=== PATIENT | male | born 1965 | race African-American/Black ===

== ENCOUNTER 2020-07-17 10:34 | Outpatient (CLI) | payer BC ==
--- NOTE | 2020-07-17 11:58 | MRI ---
MR OF THE LEFT KNEE WITHOUT CONTRAST INDICATION: Left knee pain concern for meniscal tear TECHNIQUE: Axial and coronal PD fat sat, sagittal T2 fat sat, sagittal PD turbo spin echo and T1 zachary nal images were obtained of the left knee. COMPARISON: Left knee radiograph dated July 02, 2020 FINDINGS: Joint effusion: There is a small joint effusion Semimembranosus-medial gastrocnemius popliteal cyst: Moderate sized cysts Ligaments: The ACL, PCL, MCL and LCLC are intact. Extensor mechanism: There is mild proximal patellar tendinosis. Quadriceps mechanism is intact. Menisci: There is a horizontally oriented tear involving the anterior junction, body and posterior ho rn of the medial meniscus. Lateral meniscus appears intact. Articular cartilage: There is a long segment full-thickness delaminating articular cartilage tear davis suring 1.9 cm involving the medial patellar facet. There is a 1.8 mm near full-thickness articular cartilage fissure involving median patellar ridge. There is diffuse moderate to severe chondral thinn ing involving the femoral tibial compartments, medial greater than lateral. There are moderate marginal osteophytes affecting the femoral tibial and patellofemoral compartments. Osseous structures: There is a 1.5 a 1.7 cm sessile type osteochondroma projecting off the posterior medial aspect of the proximal tibial metaphysis. No acute fracture is evident. Popliteus and IT band: Normal. IMPRESSION: 1. Medial meniscal tear. 2. Mild left knee osteoarthrosis. 3. Mild proximal patellar tendinosis. 4. Small osteochondroma of the proximal tibia.
== END 2020-07-17 10:35 | disposition home or self-care (01) ==
LOC: TBSIIMAG 10:34
PROVIDERS: ATTEND Orthopaedic Surgery
DX: S83.282A Other tear of lateral meniscus, current injury, left knee, initial encounter (principal); M23.92 Unspecified internal derangement of left knee; M25.562 Pain in left knee; M17.12 Unilateral primary osteoarthritis, left knee; S83.242A Other tear of medial meniscus, current injury, left knee, initial encounter; M76.9 Unspecified enthesopathy, lower limb, excluding foot; D16.22 Benign neoplasm of long bones of left lower limb

== ENCOUNTER 2020-08-20 07:03 | Outpatient (CLI) | payer BC ==
[2020-08-20 17:02] LABS: Anion Gap 16 mmol/L (10-20); BUN (Urea Nitrogen) 14 mg/dL (8.4-25.7); Calc. Creatinine Clearance 0 mL/min (70-130); Calcium 9.7 mg/dL (7.8-10.44); Carbon Dioxide 24 mmol/L (22-29); Chloride 104 mmol/L (98-107); Glucose 175 mg/dL (70-105); Potassium 4.6 mmol/L (3.5-5.1); Sodium 139 mmol/L (136-145)
[2020-08-20 17:08] LABS: #Monocytes 0.1 10x3/uL (0.0-1.1); #Neutrophils 4.2 10x3/uL (1.5-8.4); %Basophils 0.4 % (0.0-2.0); %Eosinophils 0.5 % (0.0-6.0); %Lymphocytes 21.5 % (18.0-47.0); %Monocytes 1.4 % (0.0-10.0); Hemoglobin 15.5 g/dL (14.0-18.0); Mean Corpuscular HGB CONC 31.9 G/DL (32.0-36.0); Mean Corpuscular Hemoglobin 26.1 PG (27.0-33.0); Mean Corpuscular Volume 81.8 fl (80.0-100.0); Mean Platelet Volume 11.1 fl (7.4-10.4); Platelet Count 270 10x3/uL (130-400); RBC Distribution Width 13.7 % (11.5-14.5); Red Blood Cell (RBC) Count 5.94 10x6/uL (4.40-5.80); White Blood Cell (WBC) Count 5.6 10x3/uL (4.5-11.0)
[2020-08-22 08:41] LABS: SARS-CoV-2 PCR by NAA Not Detected (NotDetected)
--- NOTE | 2020-08-22 09:14 | EKG ---
Test Reason : Blood Pressure : / mmHG Vent. Rate : 080 BPM Atrial Rate : 080 BPM P-R Int : 188 ms QRS Dur : 082 ms QT Int : 340 ms P-R-T Axes : 072 078 -36 degrees QTc Int : 392 ms Normal sinus rhythm Nonspecific T wave abnormality Abnormal ECG No previous ECGs available Confirmed by JB CESPEDES ([id number]) on 08/22/2020 9:13:40 AM Referred By: MITCHRO Confirmed By:JB CESPEDES
== END 2020-08-20 07:04 | disposition home or self-care (01) ==
LOC: LABBT 07:03
PROVIDERS: ATTEND Orthopaedic Surgery
DX: Z01.818 Encounter for other preprocedural examination (principal); Z20.822 Contact with and (suspected) exposure to COVID-19; S83.207A Unspecified tear of unspecified meniscus, current injury, left knee, initial encounter
CPT/HCPCS: 80048; 85025; 87635; 93005; 93010; U0003; U0005

== ENCOUNTER 2020-08-23 08:12 | Day surgery (SDC) | payer BC ==
[2020-08-21 12:28] VITALS: BMI 42.0
[2020-08-23] MEDS ORDERED: PROPOFOL 20 ML ONE (09:33)
[2020-08-23] MEDS ORDERED: Fentanyl 100 MCG/2 ML VIAL ONE ×3 (09:34→11:20)
[2020-08-23] MEDS ORDERED: Ondansetron PF 4 MG/2 ML Vial ONE (10:03)
[2020-08-23] MEDS ORDERED: PROPOFOL 200 MG/20 ML VIAL ONE (10:03)
[2020-08-23] MEDS ORDERED: Lidocaine 1% PF 5 ML VIAL ONE (10:03)
[2020-08-23] MEDS ORDERED: Ketorolac Tromethamine 30 MG/ML VIAL ONE (10:03)
[2020-08-23] MEDS ORDERED: Dexamethasone 20 MG/5 ML VIAL ONE (10:03)
[2020-08-23] MEDS ORDERED: Bupivacaine HCl 0.5%/Epinephrine 1:200,000/PF 30 ml Vial ONE (10:05)
[2020-08-23] MEDS ORDERED: Lidocaine 2% w/Epinephrine 1:200K 20 ML VIAL ONE (10:05)
[2020-08-23] MEDS ORDERED: HYDROcodone/Acetaminophen 5/325 mg Tablet ONE (12:36)
--- NOTE | 2020-08-25 10:32 | OP ---
DATE OF PROCEDURE: 08/23/2020 PREOPERATIVE DIAGNOSES: 1. Left knee medial meniscus tear. 2. Chondromalacia, left knee. POSTOPERATIVE DIAGNOSES: 1. Degenerative tear, posterior horn of medial meniscus. 2. Grade 3 and 4 changes to include the medial femoral condyle, lateral femoral condyle, trochlea, and patella. PROCEDURES PERFORMED: 1. Left knee arthroscopy with partial medial meniscectomy. 2. Debridement and shaving of all unstable chondral flaps to include medial femoral condyle, lateral femoral condyle, trochlea, and patella. CUT OFF SAWYER: None. ESTIMATED BLOOD LOSS: Minimal. COMPLICATIONS: None. ANESTHESIA: The patient had a general anesthetic as well as a preoperative local knee block. INDICATIONS: This is a 55-year-old male, who has been having problems with his knee, has consistent, locking, catching and swelling. At this time, he opted to have surgery. DESCRIPTION OF PROCEDURE: After all appropriate consent forms were explained and signed, he was taken to the operating room and at this time was given general anesthetic. Once the level of anesthesia was appropriate, tourniquet was placed on the left thigh. Leg was placed in arthroscopic leg goncalves. The limb was then prepped and draped in standard surgical fashion. The limb was exsanguinated, tourniquet was taken to 300 mmHg. The lateral portal was established, scope was placed into the knee joint. A needle localization technique was then used to make a medial working portal. Diagnostic arthroscopy commenced in the notch. The ACL and PCL were probed, found to be intact. The patient did have osteophytes off the tibia and the femur, but they were not found to be impinging and creating lack of extension and therefore they were left alone. The medial compartment showed medial femoral condyle to have significant area of grade 3 and 4 wear. Surrounding this was good cartilage. The tibial plateau did have some grade 2 changes and there was a tear in the posterior horn of the medial meniscus. Partial meniscectomy was performed using meniscal biter and shaver back to a stable base. Loose chondral flaps were noted on the medial femoral condyle, but these were minimal. The lateral compartment was then evaluated. There was some fraying in the body of the meniscus. This was taken down gently with a shaver. There were some areas of grade 3 cartilage loss in the lateral tibial plateau, but the majority of the plateau was in good condition. Laterally, there was a large unstable chondral flap on the femur and this was taken down with a shaver back to a stable base. Gutters were swept through, no loose bodies were noted, but peripheral osteophytes were noted. Patellofemoral joint, found the patient to have an unstable chondral flap on the trochlea as well as the patella and again these were both taken down to a stable base with a shaver. Both of these areas had grade 3 and 4 changes. At this time, the scope was removed from the knee. The knee was drained and each portal was closed with a simple nylon stitch. Bulky sterile dressing was applied. Tourniquet was let down. Toes pinked up nicely. The patient was awakened and was taken to the recovery room in stable condition. All counts were correct at the end of the case and he did receive preoperative IV antibiotics. Job ID: [id number] [facility]
== END 2020-08-23 13:45 | disposition home or self-care (01) ==
LOC: SDC 08:12
PROVIDERS: ATTEND Orthopaedic Surgery
PROC: 0SBD4ZZ Excision of Left Knee Joint, Percutaneous Endoscopic Approach (ICD-10-PCS; principal; 2020-08-23)
DX: M23.322 Other meniscus derangements, posterior horn of medial meniscus, left knee (principal); M94.262 Chondromalacia, left knee; M17.12 Unilateral primary osteoarthritis, left knee; E66.9 Obesity, unspecified; Z68.41 Body mass index [BMI] 40.0-44.9, adult
CPT/HCPCS: J0690; J1100; J1885; J2405; J2704; J3010

== ENCOUNTER 2022-04-10 09:47 | Outpatient (CLI) | payer BC | END 2022-04-10 09:48 | disposition home or self-care (01) | LOC: LABBT 09:47 | PROVIDERS: ATTEND Orthopaedic Surgery | DX: Z01.818 Encounter for other preprocedural examination (principal); M17.12 Unilateral primary osteoarthritis, left knee | CPT/HCPCS: 71046; 87081; 93005; 93010 ==

== ENCOUNTER 2022-04-15 05:30 | Observation (INO) | payer BC ==
[2022-04-10 11:10] LABS: Bilirubin Neg (Negative); Blood, Urine Negative (Negative); Clarity Clear (Clear); Glucose, Urine (Dipstick) Normal (Negative); Ketone, Urine Negative (Negative); Leukocyte Negative (Negative); Nitrite Negative (Negative); Protein, Urine (Dipstick) Negative (Neg-Trace); Urobilinogen Normal mg/dL (Less than 2)
[2022-04-10 11:26] LABS: #Eosinphils 0.3 10x3/uL (0.0-0.5); #Monocytes 0.5 10x3/uL (0.0-1.1); #Neutrophils 2.5 10x3/uL (1.5-8.4); %Basophils 0.6 % (0.0-2.0); %Eosinophils 5.4 % (0.0-6.0); %Lymphocytes 39.1 % (18.0-47.0); %Monocytes 9.4 % (0.0-10.0); %Neutrophils 45.3 % (40.0-75.0); Hemoglobin 14.9 g/dL (13.5-17.5); Mean Corpuscular HGB CONC 32.5 g/dL (32.0-36.0); Mean Corpuscular Hemoglobin 26.4 pg (27.0-33.0); Mean Corpuscular Volume 81.2 fl (81.2-95.1); Mean Platelet Volume 11.6 fl (7.4-10.4); Platelet Count 244 10x3/uL (150-450); RBC Distribution Width 13.5 % (11.5-14.5); Red Blood Cell (RBC) Count 5.65 10x6/uL (4.32-5.72); White Blood Cell (WBC) Count 5.4 10x3/uL (3.5-10.5)
[2022-04-10 11:34] LABS: INR-International Normal Ratio 0.9; Prothrombin Time 10.3 sec (9.5-12.1)
[2022-04-10 11:53] LABS: Anion Gap 13 mmol/L (10-20); BUN (Urea Nitrogen) 9 mg/dL (8.4-25.7); Calc. Creatinine Clearance 0 mL/min (70-130); Calcium 9.5 mg/dL (7.8-10.44); Carbon Dioxide 27 mmol/L (22-29); Chloride 106 mmol/L (98-107); Estimated GFR 82; Glucose 114 mg/dL (70-105); Potassium 4.6 mmol/L (3.5-5.1); Sodium 141 mmol/L (136-145)
[2022-04-13 15:17] VITALS: BMI 40.6
[2022-04-15] MEDS ORDERED: Tranexamic Acid 1,000 MG/10 ML VIAL ONE ×2 (06:05→09:52)
[2022-04-15] MEDS ORDERED: Sodium Chloride 0.9% 100 ML ONE ×3 (06:05→11:15)
[2022-04-15] MEDS ORDERED: VANCOMYCIN 2 GRAM/500 ML BAG 2 GM in Premix Bag 1 BAG IVPB SCH ×2 (06:15→20:00)
[2022-04-15] MEDS ORDERED: fentaNYL PF 100 MCG/2 ML SYRINGE ONE (06:19)
[2022-04-15] MEDS ORDERED: Bupivacaine PF 0.5% 30 ML VIAL ONE (06:25)
[2022-04-15] MEDS ORDERED: Midazolam HCl 2 mg/2 ml Vial ONE (06:45)
[2022-04-15] MEDS ORDERED: CEFAZOLIN 2 GM VIAL ONE (07:02)
[2022-04-15] MEDS ORDERED: Ondansetron PF 4 MG/2 ML Vial ONE (07:03)
[2022-04-15] MEDS ORDERED: PROPOFOL 200 MG/20 ML VIAL ONE (07:03)
[2022-04-15] MEDS ORDERED: Dexamethasone 20 MG/5 ML VIAL ONE (07:03)
[2022-04-15] MEDS ORDERED: Lidocaine 1% MPF 2 ML VIAL ONE (07:03)
[2022-04-15] MEDS ORDERED: Ketorolac Tromethamine 30 MG/ML VIAL ONE (07:03)
[2022-04-15] MEDS ORDERED: Bupivacaine HCl 0.5%/Epinephrine 1:200,000/PF 30 ml Vial ONE (08:29)
[2022-04-15] MEDS ORDERED: Fentanyl 100 MCG/2 ML VIAL IV PRN (09:03)
[2022-04-15] MEDS ORDERED: HYDROcodone/Acetaminophen 10/325 mg Tablet PO PRN (09:15)
[2022-04-15] MEDS ORDERED: Promethazine HCl 25 MG/ML VIAL IM PRN ×3 (09:15→09:35)
[2022-04-15] MEDS ORDERED: Ropivacaine 0.2% 550 ML 550 ML NERVE BLCK SCH (09:15)
[2022-04-15] MEDS ORDERED: Ondansetron PF 4 MG/2 ML Vial IVP PRN ×2 (09:15→09:35)
[2022-04-15] MEDS ORDERED: traMADol HCl 50 MG TAB PO PRN ×2 (09:15)
[2022-04-15] MEDS ORDERED: Zolpidem Tartrate 5 MG TAB PO PRN ×2 (09:15→09:35)
[2022-04-15] MEDS ORDERED: Promethazine HCl 25 MG/ML VIAL IVPB PRN (09:34)
[2022-04-15] MEDS ORDERED: Ondansetron HCl/PF 4 MG/2 ML Vial IVP PRN (09:34)
[2022-04-15] MEDS ORDERED: Acetaminophen 325 MG TAB PO PRN (09:35)
[2022-04-15] MEDS ORDERED: diphenhydrAMINE 25 MG CAP PO PRN (09:35)
[2022-04-15] MEDS ORDERED: Tranexamic Acid 1,000 MG in Sodium Chloride 0.9% 100 ML IVPB SCH (09:45)
[2022-04-15] MEDS ORDERED: Fentanyl 100 MCG/2 ML VIAL ONE (09:52)
[2022-04-15] MEDS ORDERED: HYDROmorphone 2 MG/ML VIAL ONE (10:21)
[2022-04-15] MEDS ORDERED: Magnesium 5 GM/10 ML Abboject SYRINGE ONE (11:11)
[2022-04-15] MEDS: Sodium Chloride 0.9% 1,000 ML IV SCH ×2 (13:29→18:55)
[2022-04-15] MEDS: CEFAZOLIN 2 GM in Sodium Chloride 0.9% 100 ML IVPB SCH ×2 (15:00→23:06)
[2022-04-15] MEDS: Ketorolac Tromethamine 30 MG/ML VIAL IVP SCH ×2 (15:01→21:01)
[2022-04-15] MEDS: Aspirin 81 mg Enteric Coated Tablet PO SCH (20:32)
[2022-04-15] MEDS: HYDROcodone/Acetaminophen 10/325 mg Tablet PO PRN (20:38)
[2022-04-16] MEDS: Ketorolac Tromethamine 30 MG/ML VIAL IVP SCH (05:18)
[2022-04-16] MEDS: HYDROcodone/Acetaminophen 10/325 mg Tablet PO PRN ×2 (05:19→09:14)
[2022-04-16 05:22] VITALS: TEMP 98
[2022-04-16] MEDS: Sodium Chloride 0.9% 1,000 ML IV SCH (05:52)
[2022-04-16 06:02] LABS: Hemoglobin 13.5 g/dL (14.0-18.0); Mean Corpuscular HGB CONC 33.3 g/dL (32.0-36.0); Mean Corpuscular Hemoglobin 28.3 pg (27.0-31.0); Platelet Count 202 thou/uL (130-400); Red Blood Cell (RBC) Count 4.77 mill/uL (4.70-6.10); White Blood Cell (WBC) Count 12.9 thou/uL (4.8-10.8)
[2022-04-16] MEDS ORDERED: Ferrous Gluconate 324 MG TAB PO SCH (08:00)
[2022-04-16 08:30] VITALS: BP 131/74
[2022-04-16] MEDS ORDERED: Multivitamin W/ Minerals 1 TAB PO SCH (09:00)
[2022-04-16] MEDS ORDERED: Senokot S 8.6-50 MG TAB PO SCH (09:00)
[2022-04-16] MEDS: Aspirin 81 mg Enteric Coated Tablet PO SCH (09:15)
[2022-04-18] MEDS ORDERED: CeleCOXIB 100 MG CAP PO SCH (09:00)
== END 2022-04-16 11:20 | disposition home or self-care (01) ==
LOC: SDC 05:30 → SURG B 09:35
PROVIDERS: ADMIT Orthopaedic Surgery; ATTEND Orthopaedic Surgery
PROC: 0SRD0J9 Replacement of Left Knee Joint with Synthetic Substitute, Cemented, Open Approach (ICD-10-PCS; principal; 2022-04-15)
PROC: 8E0YXBZ Computer Assisted Procedure of Lower Extremity (ICD-10-PCS; 2022-04-15)
PROC: 3E0T3BZ Introduction of Anesthetic Agent into Peripheral Nerves and Plexi, Percutaneous Approach (ICD-10-PCS; 2022-04-15)
DX: M17.12 Unilateral primary osteoarthritis, left knee (principal); S83.242A Other tear of medial meniscus, current injury, left knee, initial encounter; F10.11 Alcohol abuse, in remission; Z20.822 Contact with and (suspected) exposure to COVID-19
CPT/HCPCS: 36415; 80048; 81003; 85025; 85027; 85610; 86850; 86900; 86901; 87811; A4306; C1713; C1776; J0690; J1100; J1170; J1885; J2250; J2405; J2704; J2795; J3010; J3370; J3475; J3490; J7050; S0020